=== PATIENT | female | born 1985 | race Two or more races ===

== ENCOUNTER 2022-05-16 11:27 | Outpatient (CLI) | payer OTHER | END 2022-05-16 11:37 | disposition home or self-care (01) | LOC: RAD 11:27 | PROVIDERS: ATTEND Orthopaedic Surgery Orthopaedic Surgery of the Spine | DX: Q67.5 Congenital deformity of spine (principal); M50.00 Cervical disc disorder with myelopathy, unspecified cervical region ==

== ENCOUNTER 2024-04-22 07:49 | Outpatient (CLI) | payer OTHER | END 2024-04-22 08:01 | disposition home or self-care (01) | LOC: RAD 07:49 | PROVIDERS: ATTEND Orthopaedic Surgery Orthopaedic Surgery of the Spine | DX: Q67.5 Congenital deformity of spine (principal); M50.00 Cervical disc disorder with myelopathy, unspecified cervical region ==